=== PATIENT | female | born 1960 ===

== ENCOUNTER 2021-07-19 19:52 | Outpatient (REF) | payer BC, SELFPAY ==
[2021-07-21 15:48] LABS: COVID-19 RT-PCR UVMMC Result Negative (Negative)
== END 2021-07-19 19:53 | disposition home or self-care (01) ==
LOC: NCHCN 19:52
PROVIDERS: Visit Provider Internal Medicine
DX: Z20.822 Contact with and (suspected) exposure to COVID-19 (principal)
CPT/HCPCS: U0003